=== PATIENT | female | born 1965 | race Caucasian/White ===

== ENCOUNTER 2017-11-13 00:31 | Observation (INO) | payer OTHER ==
[~2017-11-13] VITALS: Ht 152.4 cm; Wt 68.0 kg
[~2017-11-13 00:31] MED LIST: ALEN70TA47 PO; PRAV10TA39 PO; RANI150T7 PO
[2017-11-13 01:13] LABS: BASOPHILS % (AUTO) 0.8 % (0.0-5.0); EOSINOPHILS % (AUTO) 2.7 % (0.0-8.0); MEAN CORPUSCULAR HEMOGLOBIN 31.7 pg (27.0-33.0); MEAN CORPUSCULAR HGB CONC 34.4 g/dL (32.0-36.0); MONOCYTES % (AUTO) 10.3 % (3.0-13.0); NEUTROPHILS % (AUTO) 46.2 % (40.0-77.0); PLATELET COUNT (AUTO) 212 K/uL (130-400); RED BLOOD CELL COUNT(AUTO) 4.57 MIL/uL (4.00-5.50); WHITE BLOOD COUNT (AUTO) 4.4 K/uL (4.8-10.8)
[2017-11-13] MEDS ORDERED: ONDANSETRON HCL 4 MG/2 ML VIAL ONE ×2 (01:20→02:43)
[2017-11-13] MEDS ORDERED: ASPIRIN 325 MG TABLET ONE (01:20)
[2017-11-13 01:21] LABS: CARBON DIOXIDE 25 mmol/L (21-32); CHLORIDE 104 mmol/L (101-111); CREATININE 0.7 mg/dL (0.5-1.5); GLOMERULAR FILTR. RATE CALC 93 mL/min (>60); GLUCOSE,RANDOM 114 mg/dL (70-105); POTASSIUM 3.3 mmol/L (3.5-5.1); SODIUM SERUM 139 mmol/L (136-145); UREA NITROGEN, BLOOD 12 mg/dL (7-18)
[2017-11-13] MEDS ORDERED: NITROGLYCERIN 0.4 MG SL TAB SL ONE (01:21)
[2017-11-13] MEDS ORDERED: FAMOTIDINE/PF 20 MG/2 ML VIAL IV ONE (01:22)
[2017-11-13] MEDS ORDERED: NITROGLYCERIN 1GM/1 INCH PACKET TD ONE (01:33)
[2017-11-13 01:35] LABS: ALANINE AMINOTRANSFERASE 70 U/L (12-78); ASPARTATE AMINOTRANSFERASE 70 U/L (10-37); BILIRUBIN,TOTAL 0.4 mg/dL (0.2-1.0); CREATINE KINASE MB < 0.5 ng/mL (0.5-3.6); CREATINE KINASE, TOTAL 66 U/L (21-232); MYOGLOBIN 33 ng/mL (10-92); TOTAL PROTEIN, SERUM 6.5 g/dL (6.0-8.3)
[2017-11-13 01:55] LABS: INR 0.92 (0.85-1.15); PARTIAL THROMBOPLASTIN TIME 27.1 SEC (26.3-35.5); PROTHROMBIN TIME 9.7 SEC (9.6-11.6)
[2017-11-13] MEDS ORDERED: DICYCLOMINE HCL 10 MG/ML 2ML AMP IM ONE (02:44)
[2017-11-13] MEDS ORDERED: MORPHINE SULFATE 4 MG/1ML SYG ONE (02:44)
[2017-11-13] MEDS ORDERED: IOPAMIDOL-370 100 ML VIAL IV ONE (03:20)
[2017-11-13] MEDS ORDERED: SODIUM CHLORIDE 0.9% 1000ML 1,000 ML IV ONE (06:14)
[2017-11-13] MEDS ORDERED: ACETAMINOPHEN 325 MG TAB PO PRN (06:30)
[2017-11-13] MEDS ORDERED: LIDOCAINE HCL-MPF 1% 2ML VIAL IJ PRN (06:30)
[2017-11-13] MEDS ORDERED: DEXTROSE 50%-WATER 50 ML DISP.SYRIN IV PRN (06:30)
[2017-11-13] MEDS ORDERED: POTASSIUM CHLORIDE 20MEQ/100ML 100 ML IV PRN (06:30)
[2017-11-13] MEDS ORDERED: LACTULOSE 20 GM/30 ML UDCUP PO PRN (06:30)
[2017-11-13] MEDS ORDERED: POTASSIUM CHLORIDE 10% ELIXIR 20 MEQ/15 ML UDCUP PO PRN (06:30)
[2017-11-13] MEDS ORDERED: ONDANSETRON HCL 4 MG/2 ML VIAL IVP PRN (06:30)
[2017-11-13] MEDS ORDERED: GLUCAGON 1MG KIT 1 MG ML IM PRN (06:30)
[2017-11-13] MEDS ORDERED: MEPERIDINE HCL/PF 25 MG/ML 1ML VIAL IV PRN (06:30)
[2017-11-13] MEDS ORDERED: NITROGLYCERIN 0.4 MG SL TAB SL PRN (06:30)
[2017-11-13] MEDS ORDERED: INSULIN R PO SSI SQ SCH (07:30)
[2017-11-13] MEDS ORDERED: MEPERIDINE-PF 25 MG/ML SYG ONE (08:23)
[2017-11-13] MEDS: ASPIRIN 325 MG TABLET PO SCH (09:00)
[2017-11-13] MEDS: FAMOTIDINE 20MG TAB 20 MG TAB PO SCH ×2 (09:00→22:02)
[2017-11-13 10:56] VITALS: BP 116/55
[2017-11-13] MEDS ORDERED: PHENYLEPHRINE HCL 10 MG/ML 1ML VIAL IV ONE (11:17)
[2017-11-13] MEDS: SODIUM CHLORIDE 0.9% 1000ML 1,000 ML IV SCH (11:58)
[2017-11-13 12:51] LABS: CHOLESTEROL 160 mg/dL (<200); CREATINE KINASE MB < 0.5 ng/mL (0.5-3.6); CREATINE KINASE, TOTAL 48 U/L (21-232); HDL CHOLESTEROL 46 mg/dL (35-85); LDL DIRECT 102 mg/dL (0-99); MYOGLOBIN 34 ng/mL (10-92); TRIGLYCERIDES 60 mg/dL (30-200); TROPONIN I < 0.04 ng/mL (0.00-0.06)
[2017-11-13] MEDS ORDERED: REGADENOSON 0.4 MG/5 ML PF SYG IVP SCH (15:15)
[2017-11-13] MEDS: POTASSIUM CHLORIDE 20 MEQ ERTAB PO PRN ×2 (18:21→22:02)
[2017-11-13 18:44] LABS: CREATINE KINASE MB < 0.5 ng/mL (0.5-3.6); CREATINE KINASE, TOTAL 45 U/L (21-232); MYOGLOBIN 38 ng/mL (10-92); TROPONIN I < 0.04 ng/mL (0.00-0.06)
[2017-11-13 19:05] VITALS: BP 121/67
[2017-11-13 23:20] VITALS: BP 123/55
[2017-11-14 04:13] VITALS: BP 119/57
[2017-11-14 05:08] LABS: HEMATOCRIT 38.9 % (36-48); MEAN CORPUSCULAR HEMOGLOBIN 31.8 pg (27.0-33.0); MEAN CORPUSCULAR HGB CONC 34.2 g/dL (32.0-36.0); MEAN CORPUSCULAR VOLUME 92.7 fL (79-99); PLATELET COUNT (AUTO) 220 K/uL (130-400); RED CELL DISTRIBUTION WIDTH 13.9 % (11.0-15.5); WHITE BLOOD COUNT (AUTO) 4.1 K/uL (4.8-10.8)
[2017-11-14 06:04] LABS: CREATININE 0.6 mg/dL (0.5-1.5); POTASSIUM 4.3 mmol/L (3.5-5.1)
[2017-11-14 08:49] VITALS: BP_SYST 111; BP_SYST 114; BP_DIAS 58; BP_DIAS 71
[2017-11-14] MEDS: SODIUM CHLORIDE 0.9% 1000ML 1,000 ML IV SCH (08:55)
[2017-11-14 12:44] VITALS: BP 119/58
[2017-11-14] MEDS ORDERED: IOPAMIDOL-370 100 ML VIAL IV ONE (15:18)
[2017-11-14] MEDS: ASPIRIN 325 MG TABLET PO SCH (15:26)
[2017-11-14] MEDS: FAMOTIDINE 20MG TAB 20 MG TAB PO SCH ×2 (15:27→21:14)
[2017-11-14] MEDS: ACETAMINOPHEN 325 MG TAB PO PRN ×2 (15:28→21:24)
[2017-11-14 17:58] VITALS: BP 120/56
[2017-11-14 19:00] VITALS: BP 115/54
[2017-11-14 23:00] VITALS: BP 113/55
[2017-11-15 03:00] VITALS: BP 122/56
[2017-11-15 07:38] VITALS: BP 117/54
[2017-11-15] MEDS ORDERED: TRAM50TA2 PO (10:00)
[2017-11-15] MEDS ORDERED: DOXY100T2 PO (10:00)
[2017-11-15 11:22] VITALS: BP 109/54
== END 2017-11-15 14:25 | disposition home or self-care (01) ==
LOC: EDH 00:31 → EDHIP 05:45 → 4BH 09:58
PROVIDERS: ADMIT Internal Medicine; ATTEND Internal Medicine
DX: R10.13 Epigastric pain (principal); E87.6 Hypokalemia; E78.5 Hyperlipidemia, unspecified; F17.210 Nicotine dependence, cigarettes, uncomplicated; K83.1 Obstruction of bile duct; Z90.49 Acquired absence of other specified parts of digestive tract; Z82.49 Family history of ischemic heart disease and other diseases of the circulatory system; R07.89 Other chest pain
CPT/HCPCS: 36415 ×2; 71045; 71275; 74174; 76700; 78452; 80048; 80053; 80061; 82550 ×3; 82553 ×3; 82948; 83874 ×3; 84484 ×3; 85025; 85027; 85610; 85730; 87338; 93005 ×4; 93017; 96361; 96374; 99291; A9500 ×2; G0378 ×57; J0500; J2175; J2270; J2370; J2405 ×2; J2785; J3490; J7030; Q9967 ×2

== ENCOUNTER 2019-01-16 13:29 | Emergency (ER) | payer OTHER ==
[~2019-01-16 13:29] MED LIST changes: +ALEN70TA10 PO; -ALEN70TA47 PO; +DOXY100T2 PO; +TRAM50TA2 PO
[2019-01-16 14:13] LABS: BASOPHILS % (AUTO) 0.9 % (0.0-5.0); EOSINOPHILS % (AUTO) 1.7 % (0.0-8.0); HEMATOCRIT 40.1 % (36-48); LYMPHOCYTES % (AUTO) 33.2 % (21.0-51.0); MEAN CORPUSCULAR HEMOGLOBIN 31.7 pg (27.0-33.0); MEAN CORPUSCULAR HGB CONC 34.1 g/dL (32.0-36.0); MONOCYTES % (AUTO) 7.5 % (3.0-13.0); NEUTROPHILS % (AUTO) 56.7 % (40.0-77.0); NUCLEATED RED BLOOD CELLS 0.1 % (0.0-0.19); PLATELET COUNT (AUTO) 256 K/uL (130-400); RED BLOOD CELL COUNT(AUTO) 4.31 MIL/uL (4.00-5.50); WHITE BLOOD COUNT (AUTO) 7.9 K/uL (4.8-10.8)
[2019-01-16 14:28] LABS: CREATININE 0.6 mg/dL (0.5-1.5)
[2019-01-16 14:44] LABS: ALBUMIN 3.5 g/dL (3.5-5.0); BILIRUBIN,TOTAL 0.2 mg/dL (0.2-1.0); TOTAL PROTEIN, SERUM 6.9 g/dL (6.0-8.3)
[2019-01-16 14:45] LABS: CREATINE KINASE, TOTAL 78 U/L (21-232); MYOGLOBIN 23 ng/mL (10-92); TROPONIN I < 0.04 ng/mL (0.00-0.06)
[2019-01-16] MEDS ORDERED: ONDANSETRON HCL 4 MG/2 ML VIAL ONE (15:09)
[2019-01-16] MEDS ORDERED: NITROGLYCERIN 1GM/1 INCH PACKET TD ONE (15:09)
[2019-01-16] MEDS ORDERED: KETOROLAC TROMETHAMINE 30MG/ML ONE (16:39)
== END 2019-01-16 17:00 | disposition home or self-care (01) ==
LOC: EDH 13:29
DX: K85.90 Acute pancreatitis without necrosis or infection, unspecified (principal); R07.89 Other chest pain; E78.5 Hyperlipidemia, unspecified; I10 Essential (primary) hypertension; G35 Multiple sclerosis; Z87.442 Personal history of urinary calculi; Z90.49 Acquired absence of other specified parts of digestive tract; Z72.0 Tobacco use
CPT/HCPCS: 36415; 71045; 74176; 80053; 82150; 82550; 83690; 83874; 84484 ×2; 85025; 93005 ×2; 96374; 96375; 99284; J1885; J2405

== ENCOUNTER → 2019-04-21 | Outpatient (CLI) | payer OTHER | END | disposition home or self-care (01) | LOC: OIH 11:11 | PROVIDERS: ATTEND Family Medicine | DX: M25.521 Pain in right elbow (principal) | CPT/HCPCS: 73080 ==

== ENCOUNTER → 2021-08-30 | Outpatient (CLI) | payer OTHER ==
[~2021-08-30] MED LIST changes: -ALEN70TA10 PO; +ALEN70TA80 PO
== END | disposition home or self-care (01) ==
LOC: RAH 12:17
PROVIDERS: ATTEND Family Medicine
DX: M17.11 Unilateral primary osteoarthritis, right knee (principal)
CPT/HCPCS: 73562